=== PATIENT | male | born 2000 | race Caucasian/White ===

== ENCOUNTER 2020-08-10 13:20 | Emergency (ER) | payer OTHER, BC ==
[~2020-08-10] VITALS: Wt 90.7 kg
[2020-08-10 14:27] LABS: BILIRUBIN Negative (Negative); BLOOD Negative (Negative); CLARITY Clear (Clear); COLOR Yellow (Yellow); GLUCOSE Negative (Negative); KETONE Negative (Negative); LEUKO ESTERASE Negative (Negative); NITRITE Negative (Negative); PH 6.5 (4.5-8.0); SPECIFIC GRAVITY 1.015 (1.001-1.030); UROBILINOGEN 0.2 E.U./dl (0.0-1.0)
[2020-08-10 14:44] LABS: BASO # 0.1 10*3/uL (0.0-0.1); BASO % 1.1 % (0.0-1.0); EOS # 0.3 10*3/uL (0.0-0.4); EOS % 6.1 % (1.0-4.0); HEMATOCRIT 40.3 % (42.0-52.0); LYMPH # 1.6 10*3/uL (1.3-4.4); MEAN CELL VOLUME 91.6 fl (80.0-94.0); MEAN CORPUSCULAR HGB 30.7 pg (27.0-31.0); MEAN CORPUSCULAR HGB CONC 33.5 g/dl (33.0-37.0); MEAN PLATELET VOLUME 10.1 fl (9.6-12.3); MONO # 0.4 10*3/uL (0.1-1.0); MONO % 7.4 % (3.0-9.0); NEUT # 2.4 10*3/uL (2.3-7.9); NEUT % 51.2 % (47.0-73.0); PLATELET COUNT AUTOMATED 171 10*3/uL (130-400); RED CELL DISTRI WIDTH 11.6 % (0-14.5); WHITE BLOOD COUNT 4.8 10*3/uL (4.8-10.8)
[2020-08-10 14:59] LABS: ALBUMIN 4.5 gm/dl (3.1-4.5); ALKALINE PHOSPHATASE 60 U/L (45-117); BUN 13 mg/dl (7-24); CHLORIDE 106 mmol/L (98-107); CREATININE 0.97 mg/dL (0.70-1.30); LIPASE 57 U/L (73-393); SGOT/AST 9 IU/L (3-35); SGPT/ALT 21 U/L (12-78); SODIUM 138 mmol/L (136-145); TOTAL PROTEIN 7.8 gm/dL (6.4-8.2)
[2020-08-10 15:22] LABS: EPITHELIAL CELLS 0-2; WBC 0-2 wbc/hpf (0-5)
[2020-08-10 15:23] LABS: RBC 0-2 rbc/hpf (0-2)
[2020-08-10] MEDS ORDERED: CIPRO500 MG PO (15:50)
== END 2020-08-10 15:55 | disposition home or self-care (01) ==
LOC: ED 13:20
PROVIDERS: Physician Assistant
DX: R30.0 Dysuria (principal)

== ENCOUNTER 2025-02-27 17:59 | Emergency (ER) | payer OTHER ==
[~2025-02-27] VITALS: Ht 185.4 cm; Wt 97.5 kg
[~2025-02-27 17:59] MED LIST: CIPRO500 MG PO
[2025-02-27] MEDS ORDERED: PAXIL30 M2 PO ×2 (18:14→18:27)
== END 2025-02-27 18:32 | disposition home or self-care (01) ==
LOC: ED 17:59
DX: F41.9 Anxiety disorder, unspecified (principal); Z76.0 Encounter for issue of repeat prescription